=== PATIENT | male | born 1960 | race Caucasian/White ===

== ENCOUNTER 2017-11-25 08:30 | Inpatient (IN) | payer OTHER ==
[2018-02-08] MEDS ORDERED: Sodium Chloride 0.9% 100 ML ONE (06:01)
[2018-02-08] MEDS ORDERED: Tranexamic Acid 1,000 MG/10 ML VIAL ONE ×2 (06:01→09:14)
[2018-02-08] MEDS ORDERED: CEFAZOLIN 2 GM/50 ML BAG ONE (06:01)
[2018-02-08] MEDS ORDERED: Vancomycin HCl 1.5 GM in Sodium Chloride 0.9% 250 ML 300 ML IVPB SCH (06:15)
[2018-02-08] MEDS ORDERED: Midazolam HCl 2 mg/2 ml Vial ONE ×2 (06:29→06:49)
[2018-02-08] MEDS ORDERED: Fentanyl 100 MCG/2 ML VIAL ONE ×4 (06:30→09:44)
[2018-02-08] MEDS ORDERED: Fentanyl 100 MCG/2 ML VIAL SLOW IVP PRN ×2 (07:03)
[2018-02-08] MEDS ORDERED: Acetaminophen 325 MG TAB PO PRN (07:03)
[2018-02-08] MEDS ORDERED: Promethazine HCl 25 MG/ML VIAL IM PRN ×3 (07:03→09:09)
[2018-02-08] MEDS ORDERED: Zolpidem Tartrate 5 MG TAB PO PRN ×2 (07:03→07:21)
[2018-02-08] MEDS ORDERED: traMADol HCl 50 MG TAB PO PRN ×2 (07:03→07:21)
[2018-02-08] MEDS ORDERED: Ondansetron PF 4 MG/2 ML Vial IVP PRN ×2 (07:03→07:21)
[2018-02-08] MEDS ORDERED: diphenhydrAMINE 25 MG CAP PO PRN (07:03)
[2018-02-08] MEDS ORDERED: HYDROcodone/Acetaminophen 10/325 mg Tablet PO PRN ×3 (07:03→07:21)
[2018-02-08] MEDS ORDERED: CEFAZOLIN/Water 2 GM/20 ML SYRINGE SLOW IVP SCH (07:15)
[2018-02-08] MEDS ORDERED: Ropivacaine HCl/PF 250 ML in Premix Bag 1 BAG NERVE BLCK SCH (07:21)
[2018-02-08] MEDS ORDERED: Meperidine HCl/PF 25 MG/ML VIAL ONE (09:01)
[2018-02-08] MEDS ORDERED: Meperidine HCl/PF 25 MG/ML VIAL SLOW IVP PRN (09:09)
[2018-02-08] MEDS ORDERED: Ondansetron HCl/PF 4 MG/2 ML Vial IVP PRN (09:09)
[2018-02-08] MEDS ORDERED: Promethazine HCl 25 MG/ML VIAL SLOW IVP PRN (09:09)
--- NOTE | 2018-02-08 09:42 | RAD ---
2 VIEW RIGHT KNEE: Date: 02/08/18 INDICATION: Total knee postop evaluation. FINDINGS: There is a right knee prosthesis without hardware complication. Expected postprocedural findings of t he soft tissues are seen. IMPRESSION: Postoperative right knee without acute hardware complication. POS: [facility]
[2018-02-08] MEDS ORDERED: Ketorolac Tromethamine 30 MG/ML VIAL ONE (09:49)
--- NOTE | 2018-02-08 11:59 | OP ---
DATE OF PROCEDURE: 02/08/2018 PREOPERATIVE DIAGNOSIS: End-stage tricompartmental osteoarthritis of right knee. POSTOPERATIVE DIAGNOSIS: End-stage tricompartmental osteoarthritis of right knee. OPERATIVE PROCEDURE: Cemented cruciate sparing computer-assisted navigation right total knee arthroplasty. SURGEON: Henri Trotter MD. DIRECTOR OF ORTHOPEDICS: Tamir Julian PA-C. ANESTHESIA: General via endotracheal tube augmented with indwelling femoral block with a single shot of sciatic block. COMPONENTS USED: [employer] Triathlon primary size 5 cemented cruciate sparing femoral component with a Triathlon primary size 5 cemented tibial base plate, 11 mm polyethylene fixed bearing insert, and an 835 patella button. TOURNIQUET TIME: 59 minutes at 300 mmHg. FINDINGS: End-stage severe degenerative tricompartmental disease, [id number] arthrosis, periarticular osteophyte formation, large serous effusion, hypertrophic synovium, and changes consistent with degenerative genu varum. ESTIMATED BLOOD LOSS: Less than 100. DRAINS: None. SPECIMENS: None. COMPLICATIONS: None. COUNTS: Correct. INDICATIONS FOR SURGERY: Mr. Gay is a 57-year-old white male, who has had progressive right knee pain standing and walking for the last 5 to 7 years. He has failed conservative management and would like to proceed with total knee arthroplasty as a definitive treatment for his pain. PROCEDURE IN DETAIL: After informed consent was obtained in the preoperative holding area, the patient was taken to the operative suite where general anesthesia was induced. Once adequate level of general anesthesia was obtained, the patient was positioned and a well-padded tourniquet was placed around the right proximal thigh. The right lower extremity was then prepped and draped in the usual sterile fashion. Prior to exsanguination, a time-out was called and all members of the surgical team agreed upon site, surgeon, and patient. The extremity was then exsanguinated and the tourniquet was raised. A midline longitudinal incision was then made directly over the patella extending 2 fingerbreadths above the superior pole of the patella and 2 fingerbreadths inferior to the inferior patellar pole of the patella. Deeper subcutaneous layers were dissected sharply and local bleeding was controlled with Bovie electrocautery. A quad tendon longitudinal split was then made sharply and a median parapatellar arthrotomy was carried out both sharp and with Bovie electrocautery, carried down to 1 fingerbreadth medial to the tibial tubercle. The knee was then placed into flexion and the patella was everted nicely, and a copious fat pad ectomy was performed, allowing for greater exposure of the tibia. The computer-assisted distal femoral fiducial was then placed and pinned firmly, and the distal femoral cutting guide was pinned firmly into place. The oscillating saw was then used to remove the appropriate amount of bone. The 4-in-1 cutting block was then placed on the distal femur and the oscillating saw was used to remove the appropriate amount of bone off the anterior, posterior, and chamfer cuts. After completion of bone cuts, the anterior cruciate ligament was resected sharply and the posterior cruciate ligament retractor was placed and the tibia was subluxed for better exposure. Partial meniscectomies were carried out, and the tibial computer-assisted fiducial was pinned, and the cutting guide was placed. Oscillating saw was then used to remove the bone, with Hohmann retractors used to take care and protect the collateral ligaments. After the tibial resection was performed, a laminar business associate was placed in between the freshened bone cuts. The knee placed at 90 degrees and further bilateral meniscectomies were carried out, and the curved osteotome and curettage were used to remove any excess bone spurs in the posterior compartment. The trial femoral component, tibial baseplate were placed with the appropriate polyethylene trial insert with an appropriate polyethylene spacer and patellar button. The knee was taken through full range of motion with flexion and extension from 0 to 90 degrees and patellar broach squarely in the trochlea without any squinting or subluxation noted. The knee was also stable to varus and valgus stressing at 0, 15, 45, and 90 degrees of flexion. The drawer was negative. All trial components were then removed and the keel punch was used to provide the appropriate defect in the tibia with a mallet. The freshened bone cuts were copiously irrigated with pulsatile lavage of about 1.5 L to remove all excess debris. The freshened bone cuts were then dried with suction and lap sponge. The knee was placed in flexion and retractors were placed to provide access to all bone cuts. Tobramycin-impregnated methyl methacrylate cement was then placed on the freshened bone cuts and implants which were malleted firmly into place. Curettage and [place] elevators were used to remove any excess bone cement. The knee was placed into full extension and the patellar button was placed under compression, and the cement was allowed to cure. Once completed, the components were again taken through full range of motion and copious irrigation of the knee was carried out with another liter of normal saline. All components were inspected fully with full range of motion and varus and valgus stressing. There was no laxity noted and full extension was observed clinically. Primary closure was accomplished with #2 interrupted Vicryl stitch of the arthrotomy defect. This was oversewn with a #2 running Quill barbed stitch. The subcutaneous layer was then closed with a running 0 barbed Monocryl stitch and skin closure accomplished with a running subcuticular 3-0 Monocryl barbed Quill stitch and augmented with cement on the skin. Tourniquet was lowered. Good spontaneous return of distal pulses was noted clinically and a sterile dressing was applied to the incision. The procedure was terminated without any complications. The patient was awakened in the operative suite and taken to the recovery room in stable condition. Job ID: [id number]
[2018-02-08] MEDS: Fentanyl 100 MCG/2 ML VIAL SLOW IVP PRN (12:52)
[2018-02-08] MEDS: CEFAZOLIN 2 GM/50 ML-DEXTROSE 2 GM in Premix Bag 1 BAG IVPB SCH ×2 (12:53→20:46)
[2018-02-08] MEDS ORDERED: Diabetic Tussin 200 MG/10 ML UDCUP PO PRN (13:48)
[2018-02-08] MEDS ORDERED: Cepastat Lozenges 1 LOZ PO PRN (13:48)
[2018-02-08] MEDS ORDERED: Ondansetron ODT 4 MG TAB PO PRN (13:48)
[2018-02-08] MEDS ORDERED: hydrALAZINE 20 MG/ML VIAL SLOW IVP PRN (13:48)
[2018-02-08] MEDS ORDERED: Artificial Tears 18 DROP/0.9 ML EA EYE PRN (13:48)
[2018-02-08] MEDS ORDERED: Sodium Chloride 0.65% Nasal 44 ML BOT EA NARE PRN (13:48)
[2018-02-08] MEDS ORDERED: Eucerin (Mineral Oil/Petrolatum,White) 30 gm Jar TOP PRN (13:48)
--- NOTE | 2018-02-08 14:52 | PDOC.PN ---
- Subjective Encounter Start Date: 02/08/18 Encounter Start Time: 14:15 -: old records requested/rev Patient seen and examined. No new complaints. admitted for right knee replacement consulted for medical management - Objective Resuscitation Status - Order Detail: 02/08/18 13:49 Resuscitation Status Routine Resuscitation Status: FULL: Full Resuscitation MAR Reviewed: Yes Vital Signs & Weight: Weight Weight 207 lb Additional Labs: old record reviewed Radiology Reviewed by me: Yes (knee xray reviewed) Phys Exam - Physical Examination Constitutional: NAD HEENT: PERRLA, moist MMs, sclera anicteric Neck: no JVD, supple Respiratory: no wheezing, no rales, no rhonchi Cardiovascular: RRR, no significant murmur, no rub Gastrointestinal: soft, non-tender, no distention, positive bowel sounds Musculoskeletal: no edema, pulses present right knee with dressing, nerve block in place Neurological: non-focal, normal sensation, moves all 4 limbs Psychiatric: normal affect, A&O x 3 Skin: no rash, normal turgor Dx/Plan (1) Status post total right knee replacement Code(s): Z96.651 - PRESENCE OF RIGHT ARTIFICIAL KNEE JOINT Status: Acute (2) H/O gastric bypass Code(s): Z98.84 - BARIATRIC SURGERY STATUS Status: Chronic (3) H/O gastric ulcer Code(s): Z87.19 - PERSONAL HISTORY OF OTHER DISEASES OF THE DIGESTIVE SYSTEM Status: Chronic (4) Osteoarthritis Code(s): M19.90 - UNSPECIFIED OSTEOARTHRITIS, UNSPECIFIED SITE Status: Chronic - Plan cont current plan of care, plan discussed w/ family, PT/OT * continue aspirin for DVT prophylaxis * continue pepcid for GI prophylaxis * nerve block as per anesthesia * code status addressed and he is full code * medication reviewed as below * symptomatic treatment * discussed with family * PT/OT as per [facility] protocol * home medication reconciled.. Review of Systems - Review of Systems ENT: negative: Ear Pain, Ear Discharge, Nose Pain, Nose Discharge, Nose Congestion, Mouth Pain, Mouth Swelling, Throat Pain, Throat Swelling, Other Respiratory: negative: Cough, Dry, Shortness of Breath, Hemoptysis, SOB with Excertion, Pleuritic Pain, Sputum, Wheezing Cardiovascular: negative: chest pain, palpitations, orthopnea, paroxysmal nocturnal dyspnea, edema, light headedness, other Gastrointestinal: negative: Nausea, Vomiting, Abdominal Pain, Diarrhea, Constipation, Melena, Hematochezia, Other Genitourinary: negative: Dysuria, Frequency, Incontinence, Hematuria, Retention , Other Musculoskeletal: negative: Neck Pain, Shoulder Pain, Arm Pain, Back Pain, Hand Pain, Leg Pain, Foot Pain, Other Skin: negative: Rash, Lesions, Fabián, Bruising, Other Neurological: negative: Weakness, Numbness, Incoordination, Change in Speech, Confusion, Seizures, Other - Medications/Allergies Allergies/Adverse Reactions: Allergies Allergy/AdvReac Type Severity Reaction Status Date / Time codeine Allergy stomach Verified 12/30/17 09:12 upset Medications: Current Medications Acetaminophen (Tylenol) 650 mg PO Q4H PRN PRN Reason: VALDEZ/ T > 101F; Mild Pain (1-3) Hydrocodone Bitart/Acetaminophen ([place]kins 10/325) 1 tab PO Q4H PRN PRN Reason: Pain (1-3) Hydrocodone Bitart/Acetaminophen ([place] 10/325) 2 tab PO Q4H PRN PRN Reason: PAIN (4-6) Artificial Tears (Tears Naturale) 2 drop EA EYE PRN PRN PRN Reason: Dry Eyes Aspirin (Ecotrin) 81 mg PO BID [facility] Diphenhydramine HCl (Benadryl) 25 mg PO Q6H PRN PRN Reason: Itching Fentanyl (Sublimaze) 50 mcg SLOW IVP Q1H PRN PRN Reason: breakthrough pain Last Admin: 02/08/18 12:52 Dose: 50 mcg Ferrous Gluconate (Fergon) 324 mg PO BID-WM [facility] Guaifenesin (Robitussin Sf) 200 mg PO Q4H PRN PRN Reason: Cough Hydralazine HCl (Apresoline) 10 mg SLOW IVP Q4H PRN PRN Reason: SBP > 180 and HR < 70 Sodium Chloride (Normal Saline 0.9%) 1,000 mls @ 100 mls/hr IV .Q10H [facility] Cefazolin Sodium/Dextrose 2 gm (/ Device) 50 mls @ 100 mls/hr IVPB Q8HR [facility] Stop: 02/08/18 22:29 Last Admin: 02/08/18 12:53 Dose: 50 mls Ropivacaine 250 ml/ Device 250 mls @ 10 mls/hr NERVE BLCK INF [facility] Iron/Minerals/Multivitamins (Theragran M) 1 tab PO DAILY [facility] Ketorolac Tromethamine (Toradol) 30 mg IVP Q6H PRN PRN Reason: Moderate Pain (4-6) Stop: 02/11/18 07:22 Mineral Oil/White Petrolatum (Eucerin Cream) 0 gm TOP BIDPRN PRN PRN Reason: Dry Skin Ondansetron HCl (Zofran) 4 mg IVP Q6H PRN PRN Reason: Nausea/Vomiting Ondansetron HCl (Zofran Odt) 4 mg PO Q6H PRN PRN Reason: Nausea/Vomiting Promethazine HCl (Phenergan) 12.5 mg IM Q4H PRN PRN Reason: Nausea Senna/Docusate Sodium (Senokot S) 2 tab PO BID [facility] Sodium Chloride (Flush - Normal Saline) 10 ml IVF PRN PRN PRN Reason: Saline Flush Sodium Chloride ([place] Nasal [place] 0.65%) 0 ml EA NARE QIDPRN PRN PRN Reason: Nasal Congestion Throat Lozenges (Cepastat Lozenges) 1 rhona PO Q2H PRN PRN Reason: Sore Throat Tramadol HCl (Ultram) 50 mg PO Q6H PRN PRN Reason: Mild Pain (1-3) Tramadol HCl (Ultram) 100 mg PO Q6H PRN PRN Reason: Moderate Pain 4-6 Zolpidem Tartrate (Ambien) 5 mg PO HSPRN PRN PRN Reason: Insomnia
[2018-02-08] MEDS ORDERED: Ropivacaine 0.5% HCl/PF (150 MG/30 ML VIAL) ONE (15:39)
[2018-02-08] MEDS ORDERED: Bupivacaine 0.25% HCL 30 ML VIAL ONE (15:39)
[2018-02-08] MEDS: Sodium Chloride 0.9% 1,000 ML IV SCH ×2 (15:41→18:36)
[2018-02-08] MEDS: Aspirin 81 mg Enteric Coated Tablet PO SCH ×2 (15:42→20:47)
[2018-02-08] MEDS ORDERED: Dexamethasone 20 MG/5 ML VIAL ONE (15:57)
[2018-02-08] MEDS ORDERED: Glycopyrrolate 0.2 MG/ML 5 ML SYRINGE ONE (15:57)
[2018-02-08] MEDS ORDERED: PHENYLEPHRINE-NS 100 MCG/ML 10 ML SYRINGE ONE (15:57)
[2018-02-08] MEDS ORDERED: Lidocaine 1% PF 5 ML VIAL ONE (15:57)
[2018-02-08] MEDS ORDERED: Ondansetron PF 4 MG/2 ML Vial ONE (15:57)
[2018-02-08] MEDS ORDERED: PROPOFOL 200 MG/20 ML VIAL ONE (15:57)
[2018-02-08 16:49] VITALS: BMI 28.0
[2018-02-08] MEDS: HYDROcodone/Acetaminophen 10/325 mg Tablet PO PRN (18:52)
[2018-02-08] MEDS: Famotidine 20 MG TAB PO SCH (20:47)
[2018-02-09] MEDS: Sodium Chloride 0.9% 1,000 ML IV SCH ×3 (03:08→19:38)
[2018-02-09] MEDS: HYDROcodone/Acetaminophen 10/325 mg Tablet PO PRN ×4 (04:04→18:13)
[2018-02-09] MEDS: traMADol HCl 50 MG TAB PO PRN ×2 (06:43→13:06)
[2018-02-09] MEDS: Ketorolac Tromethamine 30 MG/ML VIAL IVP PRN ×2 (06:44→17:25)
[2018-02-09 06:58] LABS: Hemoglobin 11.3 g/dL (14.0-18.0); Mean Corpuscular HGB CONC 33.8 g/dL (32.0-36.0); Mean Corpuscular Hemoglobin 30.9 pg (27.0-31.0); Mean Corpuscular Volume 91.3 fL (78.0-98.0); Mean Platelet Volume 8.8 fL (7.4-10.4); Platelet Count 170 thou/uL (130-400); RBC Distribution Width 12.1 % (11.5-14.5); Red Blood Cell (RBC) Count 3.65 mill/uL (4.70-6.10); White Blood Cell (WBC) Count 7.4 thou/uL (4.8-10.8)
[2018-02-09] MEDS: Senokot S 8.6-50 MG TAB PO SCH ×2 (07:39→19:40)
[2018-02-09] MEDS: Famotidine 20 MG TAB PO SCH ×2 (07:39→19:41)
[2018-02-09] MEDS: Multivitamin W/ Minerals 1 TAB PO SCH (07:39)
[2018-02-09] MEDS: Ferrous Gluconate 324 MG TAB PO SCH ×2 (07:39→18:41)
[2018-02-09] MEDS: Aspirin 81 mg Enteric Coated Tablet PO SCH ×2 (07:40→19:40)
--- NOTE | 2018-02-09 10:08 | PDOC.PN ---
- Subjective Encounter Start Date: 02/09/18 Encounter Start Time: 09:45 Patient seen and examined. No new complaints. No overnight events - Objective Resuscitation Status - Order Detail: 02/08/18 13:49 Resuscitation Status Routine Resuscitation Status: FULL: Full Resuscitation MAR Reviewed: Yes Vital Signs & Weight: Vital Signs (12 hours) Temp Pulse Resp BP Pulse Ox 02/09/18 07:43 98 F 60 20 143/84 H 95 02/09/18 04:07 98.3 F 69 18 140/81 99 02/08/18 23:40 98.3 F 63 18 132/79 96 Weight Weight 207 lb I&O: 02/08/18 02/09/18 02/10/18 06:59 06:59 06:59 Intake Total 980 Output Total 350 Balance 630 Result Diagrams: 02/09/18 05:55 Phys Exam - Physical Examination Constitutional: NAD HEENT: PERRLA, moist MMs, sclera anicteric Neck: no JVD, supple Respiratory: no wheezing, no rales, no rhonchi Cardiovascular: RRR, no significant murmur, no rub Gastrointestinal: soft, non-tender, no distention, positive bowel sounds Musculoskeletal: no edema, pulses present right knee with dressing Neurological: non-focal, normal sensation Lymphatic: no nodes Psychiatric: normal affect, A&O x 3 Skin: no rash, normal turgor Dx/Plan (1) Status post total right knee replacement Code(s): Z96.651 - PRESENCE OF RIGHT ARTIFICIAL KNEE JOINT Status: Acute (2) H/O gastric bypass Code(s): Z98.84 - BARIATRIC SURGERY STATUS Status: Chronic (3) H/O gastric ulcer Code(s): Z87.19 - PERSONAL HISTORY OF OTHER DISEASES OF THE DIGESTIVE SYSTEM Status: Chronic (4) Osteoarthritis Code(s): M19.90 - UNSPECIFIED OSTEOARTHRITIS, UNSPECIFIED SITE Status: Chronic (5) Anemia, normocytic normochromic Code(s): D64.9 - ANEMIA, UNSPECIFIED Status: Chronic - Plan cont current plan of care, plan discussed w/ family, PT/OT * medically stable * pain controlled * continue aspirin for DVT prophylaxis * continue pepcid for GI prophylaxis * nerve block as per anesthesia * medication reviewed as below * symptomatic treatment * discussed with family * PT/OT as per [facility] protocol Review of Systems - Review of Systems ENT: negative: Ear Pain, Ear Discharge, Nose Pain, Nose Discharge, Nose Congestion, Mouth Pain, Mouth Swelling, Throat Pain, Throat Swelling, Other Respiratory: negative: Cough, Dry, Shortness of Breath, Hemoptysis, SOB with Excertion, Pleuritic Pain, Sputum, Wheezing Cardiovascular: negative: chest pain, palpitations, orthopnea, paroxysmal nocturnal dyspnea, edema, light headedness, other Gastrointestinal: negative: Nausea, Vomiting, Abdominal Pain, Diarrhea, Constipation, Melena, Hematochezia, Other Genitourinary: negative: Dysuria, Frequency, Incontinence, Hematuria, Retention , Other Musculoskeletal: negative: Neck Pain, Shoulder Pain, Arm Pain, Back Pain, Hand Pain, Leg Pain, Foot Pain, Other Skin: negative: Rash, Lesions, Fabián, Bruising, Other - Medications/Allergies Allergies/Adverse Reactions: Allergies Allergy/AdvReac Type Severity Reaction Status Date / Time codeine Allergy stomach Verified 12/30/17 09:12 upset Medications: Current Medications Acetaminophen (Tylenol) 650 mg PO Q4H PRN PRN Reason: VALDEZ/ T > 101F; Mild Pain (1-3) Hydrocodone Bitart/Acetaminophen ([place] 10/325) 1 tab PO Q4H PRN PRN Reason: Pain (1-3) Last Admin: 02/08/18 15:34 Dose: 1 tab Hydrocodone Bitart/Acetaminophen ([place] 10/325) 2 tab PO Q4H PRN PRN Reason: PAIN (4-6) Last Admin: 02/09/18 09:18 Dose: 2 tab Artificial Tears (Tears Naturale) 2 drop EA EYE PRN PRN PRN Reason: Dry Eyes Aspirin (Ecotrin) 81 mg PO BID [facility] Last Admin: 02/09/18 07:40 Dose: 81 mg Diphenhydramine HCl (Benadryl) 25 mg PO Q6H PRN PRN Reason: Itching Famotidine (Pepcid) 20 mg PO BID [facility] Last Admin: 02/09/18 07:39 Dose: 20 mg Fentanyl (Sublimaze) 50 mcg SLOW IVP Q1H PRN PRN Reason: breakthrough pain Last Admin: 02/08/18 12:52 Dose: 50 mcg Ferrous Gluconate (Fergon) 324 mg PO BID-[facility] Last Admin: 02/09/18 07:39 Dose: 324 mg Guaifenesin (Robitussin Sf) 200 mg PO Q4H PRN PRN Reason: Cough Hydralazine HCl (Apresoline) 10 mg SLOW IVP Q4H PRN PRN Reason: SBP > 180 and HR < 70 Sodium Chloride (Normal Saline 0.9%) 1,000 mls @ 100 mls/hr IV .Q10H [facility] Last Admin: 02/09/18 03:08 Dose: Not Given Ropivacaine 250 ml/ Device 250 mls @ 10 mls/hr NERVE BLCK INF [facility] Last Admin: 02/09/18 09:55 Dose: 250 mls Iron/Minerals/Multivitamins (Theragran M) 1 tab PO DAILY [facility] Last Admin: 02/09/18 07:39 Dose: 1 tab Ketorolac Tromethamine (Toradol) 30 mg IVP Q6H PRN PRN Reason: Moderate Pain (4-6) Stop: 02/11/18 07:22 Last Admin: 02/09/18 06:44 Dose: 30 mg Mineral Oil/White Petrolatum (Eucerin Cream) 0 gm TOP BIDPRN PRN PRN Reason: Dry Skin Ondansetron HCl (Zofran) 4 mg IVP Q6H PRN PRN Reason: Nausea/Vomiting Ondansetron HCl (Zofran Odt) 4 mg PO Q6H PRN PRN Reason: Nausea/Vomiting Promethazine HCl (Phenergan) 12.5 mg IM Q4H PRN PRN Reason: Nausea Senna/Docusate Sodium (Senokot S) 2 tab PO BID [facility] Last Admin: 02/09/18 07:39 Dose: 2 tab Sodium Chloride (Flush - Normal Saline) 10 ml IVF PRN PRN PRN Reason: Saline Flush Sodium Chloride ([place] Nasal [place] 0.65%) 0 ml EA NARE QIDPRN PRN PRN Reason: Nasal Congestion Throat Lozenges (Cepastat Lozenges) 1 rhona PO Q2H PRN PRN Reason: Sore Throat Tramadol HCl (Ultram) 50 mg PO Q6H PRN PRN Reason: Mild Pain (1-3) Tramadol HCl (Ultram) 100 mg PO Q6H PRN PRN Reason: Moderate Pain 4-6 Last Admin: 02/09/18 06:43 Dose: 100 mg Zolpidem Tartrate (Ambien) 5 mg PO HSPRN PRN PRN Reason: Insomnia
[2018-02-09] MEDS: Fentanyl 100 MCG/2 ML VIAL SLOW IVP PRN ×2 (16:50→17:50)
[2018-02-10] MEDS: HYDROcodone/Acetaminophen 10/325 mg Tablet PO PRN ×3 (00:19→08:32)
[2018-02-10] MEDS: Ketorolac Tromethamine 30 MG/ML VIAL IVP PRN (00:21)
[2018-02-10 06:16] LABS: Hemoglobin 11.4 g/dL (14.0-18.0); Mean Corpuscular HGB CONC 34.1 g/dL (32.0-36.0); Mean Corpuscular Hemoglobin 31.8 pg (27.0-31.0); Mean Corpuscular Volume 93.3 fL (78.0-98.0); Mean Platelet Volume 8.7 fL (7.4-10.4); Platelet Count 149 thou/uL (130-400); RBC Distribution Width 12.3 % (11.5-14.5); White Blood Cell (WBC) Count 6.9 thou/uL (4.8-10.8)
[2018-02-10] MEDS: Ferrous Gluconate 324 MG TAB PO SCH (07:30)
[2018-02-10] MEDS: Senokot S 8.6-50 MG TAB PO SCH (07:30)
[2018-02-10] MEDS: Famotidine 20 MG TAB PO SCH (07:30)
[2018-02-10] MEDS: Aspirin 81 mg Enteric Coated Tablet PO SCH (07:30)
[2018-02-10] MEDS: Multivitamin W/ Minerals 1 TAB PO SCH (07:30)
[2018-02-10 08:21] VITALS: BP 145/89; TEMP 98.1
--- NOTE | 2018-02-10 09:15 | PDOC.PN ---
- Subjective Encounter Start Date: 02/10/18 Encounter Start Time: 07:30 Patient seen and examined. No new complaints. No overnight events - Objective Resuscitation Status - Order Detail: 02/08/18 13:49 Resuscitation Status Routine Resuscitation Status: FULL: Full Resuscitation MAR Reviewed: Yes Vital Signs & Weight: Vital Signs (12 hours) Temp Pulse Resp BP Pulse Ox 02/10/18 07:30 98.1 F 72 20 145/89 H 99 02/10/18 04:50 56 L 142/88 H 02/10/18 04:00 98.6 F 54 L 18 168/102 H 100 02/10/18 00:00 98 F 16 140/72 98 Weight Admit Weight 207 lb Weight 207 lb I&O: 02/09/18 02/10/18 02/11/18 06:59 06:59 06:59 Intake Total 980 830 Output Total 350 Balance 630 830 Result Diagrams: 02/10/18 05:37 Phys Exam - Physical Examination Constitutional: NAD HEENT: PERRLA, moist MMs, sclera anicteric Neck: no JVD, supple Respiratory: no wheezing, no rales, no rhonchi Cardiovascular: RRR, no significant murmur, no rub Gastrointestinal: soft, non-tender, no distention, positive bowel sounds Musculoskeletal: no edema, pulses present Neurological: non-focal, normal sensation, moves all 4 limbs Lymphatic: no nodes Psychiatric: normal affect, A&O x 3 Skin: no rash, normal turgor Dx/Plan (1) Status post total right knee replacement Code(s): Z96.651 - PRESENCE OF RIGHT ARTIFICIAL KNEE JOINT Status: Acute (2) H/O gastric bypass Code(s): Z98.84 - BARIATRIC SURGERY STATUS Status: Chronic (3) H/O gastric ulcer Code(s): Z87.19 - PERSONAL HISTORY OF OTHER DISEASES OF THE DIGESTIVE SYSTEM Status: Chronic (4) Osteoarthritis Code(s): M19.90 - UNSPECIFIED OSTEOARTHRITIS, UNSPECIFIED SITE Status: Chronic (5) Anemia, normocytic normochromic Code(s): D64.9 - ANEMIA, UNSPECIFIED Status: Chronic - Plan cont current plan of care * medication reviewed as below * symptomatic treatment * stable for discharge * see discharge summery. Review of Systems - Review of Systems ENT: negative: Ear Pain, Ear Discharge, Nose Pain, Nose Discharge, Nose Congestion, Mouth Pain, Mouth Swelling, Throat Pain, Throat Swelling, Other Respiratory: negative: Cough, Dry, Shortness of Breath, Hemoptysis, SOB with Excertion, Pleuritic Pain, Sputum, Wheezing Cardiovascular: negative: chest pain, palpitations, orthopnea, paroxysmal nocturnal dyspnea, edema, light headedness, other Gastrointestinal: negative: Nausea, Vomiting, Abdominal Pain, Diarrhea, Constipation, Melena, Hematochezia, Other Genitourinary: negative: Dysuria, Frequency, Incontinence, Hematuria, Retention , Other Musculoskeletal: negative: Neck Pain, Shoulder Pain, Arm Pain, Back Pain, Hand Pain, Leg Pain, Foot Pain, Other Skin: negative: Rash, Lesions, Fabián, Bruising, Other - Medications/Allergies Allergies/Adverse Reactions: Allergies Allergy/AdvReac Type Severity Reaction Status Date / Time codeine Allergy stomach Verified 12/30/17 09:12 upset Medications: Current Medications Acetaminophen (Tylenol) 650 mg PO Q4H PRN PRN Reason: VALDEZ/ T > 101F; Mild Pain (1-3) Hydrocodone Bitart/Acetaminophen ([place] 10/325) 1 tab PO Q4H PRN PRN Reason: Pain (1-3) Last Admin: 02/08/18 15:34 Dose: 1 tab Hydrocodone Bitart/Acetaminophen ([place] 10/325) 2 tab PO Q4H PRN PRN Reason: PAIN (4-6) Last Admin: 02/10/18 08:32 Dose: 2 tab Artificial Tears (Tears Naturale) 2 drop EA EYE PRN PRN PRN Reason: Dry Eyes Aspirin (Ecotrin) 81 mg PO BID [facility] Last Admin: 02/10/18 07:30 Dose: 81 mg Diphenhydramine HCl (Benadryl) 25 mg PO Q6H PRN PRN Reason: Itching Famotidine (Pepcid) 20 mg PO BID [facility] Last Admin: 02/10/18 07:30 Dose: 20 mg Fentanyl (Sublimaze) 50 mcg SLOW IVP Q1H PRN PRN Reason: breakthrough pain Last Admin: 02/09/18 17:50 Dose: 50 mcg [facility] Last Admin: 02/10/18 07:30 Dose: 324 mg Guaifenesin (Robitussin Sf) 200 mg PO Q4H PRN PRN Reason: Cough Hydralazine HCl (Apresoline) 10 mg SLOW IVP Q4H PRN PRN Reason: SBP > 180 and HR < 70 Sodium Chloride (Normal Saline 0.9%) 1,000 mls @ 100 mls/hr IV .Q10H [facility] Last Admin: 02/09/18 19:38 Dose: Not Given Ropivacaine 250 ml/ Device 250 mls @ 10 mls/hr NERVE BLCK INF [facility] Last Admin: 02/09/18 09:55 Dose: 250 mls Iron/Minerals/Multivitamins (Theragran M) 1 tab PO DAILY [facility] Last Admin: 02/10/18 07:30 Dose: 1 tab Ketorolac Tromethamine (Toradol) 30 mg IVP Q6H PRN PRN Reason: Moderate Pain (4-6) Stop: 02/11/18 07:22 Last Admin: 02/10/18 00:21 Dose: 30 mg Mineral Oil/White Petrolatum (Eucerin Cream) 0 gm TOP BIDPRN PRN PRN Reason: Dry Skin Ondansetron HCl (Zofran) 4 mg IVP Q6H PRN PRN Reason: Nausea/Vomiting Ondansetron HCl (Zofran Odt) 4 mg PO Q6H PRN PRN Reason: Nausea/Vomiting Last Admin: 02/09/18 13:04 Dose: 4 mg Promethazine HCl (Phenergan) 12.5 mg IM Q4H PRN PRN Reason: Nausea Senna/Docusate Sodium (Senokot S) 2 tab PO BID [facility] Last Admin: 02/10/18 07:30 Dose: 2 tab Sodium Chloride (Flush - Normal Saline) 10 ml IVF PRN PRN PRN Reason: Saline Flush Sodium Chloride ([place] Nasal [employer] 0.65%) 0 ml EA NARE QIDPRN PRN PRN Reason: Nasal Congestion Throat Lozenges (Cepastat Lozenges) 1 rhona PO Q2H PRN PRN Reason: Sore Throat Tramadol HCl (Ultram) 50 mg PO Q6H PRN PRN Reason: Mild Pain (1-3) Tramadol HCl (Ultram) 100 mg PO Q6H PRN PRN Reason: Moderate Pain 4-6 Last Admin: 02/09/18 13:06 Dose: 100 mg Zolpidem Tartrate (Ambien) 5 mg PO HSPRN PRN PRN Reason: Insomnia
--- NOTE | 2018-02-10 10:26 | DIS ---
DATE OF ADMISSION: 02/08/2018 DATE OF DISCHARGE: 02/10/2018 DISCHARGE DISPOSITION: Home. DISCHARGE PRIMARY DIAGNOSIS: Right total knee replacement status. SECONDARY DISCHARGE DIAGNOSES: 1. Osteoarthritis. 2. History of gastric bypass. 3. History of gastric ulcer. PRIMARY PROCEDURE/OPERATION: Right total knee replacement by Dr. Trotter. RADIOLOGICAL INVESTIGATION: Knee x-ray. SIGNIFICANT LABS: Hemoglobin 11.4. DISCHARGE MEDICATIONS: 1. Zofran 4 mg p.o. as directed p.r.n. 2. Protonix 40 mg p.o. daily. 3. Aspirin 81 mg p.o. b.i.d. CONTRAINDICATION: None. CODE STATUS: Full code. INPATIENT DIETITIAN RESEARCH: Dr. Trotter was primary, Brittny Team was consulted for medical co-management. TEST RESULTS PENDING ON DISCHARGE: None. ALLERGIES: CODEINE. DISCHARGE PLAN: Posthospital, the patient will follow up with Dr. Trotter on February 23, 2018, at 9:15 a.m. HOSPITAL COURSE: A 57-year-old male who was electively admitted by Dr. Trotter, for right total knee replacement. The patient was subsequently admitted to [facility]. At that point, Brittny Team was consulted for medical comanagement. The patient's medical problems remained stable. He did very well with [facility] protocol treatment. The patient's pain is well controlled. The patient is planned for discharge today. The patient is seen and examined at bedside today. Please see my progress note from today for further details. Job ID: [id number]
== END 2018-02-10 11:40 | disposition home or self-care (01) | DRG 470 ==
LOC: CANPREIN → SURG A 02-08 05:44 → SJJU 02-08 12:25
PROVIDERS: ADMIT Orthopaedic Surgery; ATTEND Orthopaedic Surgery
PROC: 0SRC0J9 Replacement of Right Knee Joint with Synthetic Substitute, Cemented, Open Approach (ICD-10-PCS; principal; 2018-02-08)
DX: M17.11 Unilateral primary osteoarthritis, right knee (principal); D64.9 Anemia, unspecified; Z98.84 Bariatric surgery status; Z87.11 Personal history of peptic ulcer disease; Z88.5 Allergy status to narcotic agent
CPT/HCPCS: 36415; 85027; C1713; C1776; G8978-GP-CK; G8979-GP-CI; J1100; J1885; J2001; J2175; J2250; J2405; J2704; J2795; J3010; J3370; J7050; Q0162; S0020

== ENCOUNTER 2017-12-21 22:37 | Emergency (ER) | payer OTHER ==
--- NOTE | 2017-12-21 23:10 | RAD ---
CHEST ONE VIEW: 12/21/17 HISTORY: Chest pain. FINDINGS: The cardiac silhouette is magnified by projection. Pulmonary vasculature unremarkable. Mediastinum i s midline. No lobar consolidation or evidence of pneumothorax. bus monitor leads overlie the ches t. IMPRESSION: No active cardiopulmonary abnormalities are demonstrated. POS: [facility]
[2017-12-21 23:11] LABS: #Eosinphils 0.1 thou/uL (0.0-0.7); #Lymphocytes 0.9 thou/uL (1.20-3.40); #Monocytes 0.6 thou/uL (0.11-0.59); #Neutrophils 4.5 thou/uL (1.40-6.50); %Basophils 0.6 % (0.0-1.0); %Lymphocytes 14.3 % (21.0-51.0); %Monocytes 9.7 % (0.0-10.0); %Neutrophils 74.4 % (42.0-75.0); Hemoglobin 13.2 g/dL (14.0-18.0); Mean Corpuscular HGB CONC 33.5 g/dL (32.0-36.0); Mean Corpuscular Volume 92.6 fL (78.0-98.0); Mean Platelet Volume 8.2 fL (7.4-10.4); Platelet Count 183 thou/uL (130-400); RBC Distribution Width 12.6 % (11.5-14.5); Red Blood Cell (RBC) Count 4.26 mill/uL (4.70-6.10); White Blood Cell (WBC) Count 6.1 thou/uL (4.8-10.8)
[2017-12-21] MEDS ORDERED: Ondansetron HCl/PF 4 MG/2 ML Vial ONE (23:25)
[2017-12-21 23:30] LABS: ALT (SGPT) 102 U/L (8-55); AST (SGOT) 134 U/L (5-34); Albumin 3.8 g/dL (3.5-5.0); Alkaline Phosphatase 151 U/L (40-150); Anion Gap 10 mmol/L (10-20); BUN (Urea Nitrogen) 17 mg/dL (8.4-25.7); Bilirubin, Total 1.9 mg/dL (0.2-1.2); Calc. Creatinine Clearance 0 mL/min (70-130); Calcium 8.9 mg/dL (7.8-10.44); Carbon Dioxide 23 mmol/L (22-29); Chloride 109 mmol/L (98-107); Estimated GFR-MDRD Greater than 90; Globulin 2.3 g/dL (2.4-3.5); Glucose 96 mg/dL (70-105); Lipase 492 U/L (8-78); Potassium 3.8 mmol/L (3.5-5.1); Protein, Total 6.1 g/dL (6.0-8.3); Sodium 138 mmol/L (136-145)
[2017-12-21 23:34] LABS: CKMB 2.7 ng/mL (0-6.6); Troponin I Less than 0.010 ng/mL (< 0.028)
[2017-12-21] MEDS ORDERED: Ondansetron ODT 4 MG TAB ONE (23:42)
[2017-12-21] MEDS ORDERED: Lidocaine Viscous Sol 2% 15 ml UD Cup ONE (23:42)
[2017-12-21] MEDS ORDERED: Milk Of Magnesia 30 ML UDCUP ONE (23:42)
[2017-12-22] MEDS ORDERED: Ondansetron HCl/PF 4 MG/2 ML Vial ONE (00:34)
[2017-12-22 01:55] LABS: Bilirubin Small (Negative); Blood, Urine Negative (Negative); Clarity CLEAR (Clear); Glucose, Urine (Dipstick) Negative (Negative); Leukocyte Negative (Negative); Nitrite Negative (Negative); Protein, Urine (Dipstick) Negative (Neg-Trace); Specific Gravity, Urine 1.024 (1.002-1.036)
--- NOTE | 2017-12-22 08:35 | CT ---
PRELIMINARY REPORT/[facility]/EMERGENTY AFTER-HOURS PROCEDURE CT Abdomen and Pelvis With Intravenous Contrast EXAM DATE/TIME: 12/22/2017 1:47 AM CLINICAL HISTORY: 57 years old, male; Pain; Abdominal pain; Epigastric; Patient HX: M57 presents to ed with C/O epigast josie pain. Reports that the pain begins in his mid-stomach and radiates upwards towards throat. Patien t reports that pain has persisted for about 2 years but has worsened tonight. TECHNIQUE: Axial computed tomography images of the abdomen and pelvis with intravenous contrast. Coronal reformatted images were created and reviewed. COMPARISON: No relevant prior studies available. FINDINGS: Lower thorax: No acute findings. ABDOMEN: Liver: Unremarkable. Gallbladder and bile ducts: Gallbladder not visualized. Pancreas: Unremarkable. Spleen: Unremarkable. Adrenals: Unremarkable. Kidneys and ureters: Small right renal cyst and subcentimeter low-attenuation left renal lesion. Symmetric nephrograms. No hydronephrosis. Stomach and bowel: Gastric bypass. Otherwise unremarkable. No evidence of obstruction. Appendix: No evidence of appendicitis. PELVIS: Bladder: Underdistended. Reproductive: Unremarkable as visualized. ABDOMEN and PELVIS: Intraperitoneal space: No free air. No significant fluid collection. Bones/joints: No acute fracture. No dislocation. Soft tissues: Unremarkable. Vasculature: Unremarkable. Lymph nodes: Multiple subcentimeter mesenteric lymph nodes. IMPRESSION: No acute findings. Thank you for allowing us to participate in the care of your patient. Dictated and Authenticated by: Nickolas Cabrera MD 12/22/2017 2:29 AM Central Time ([place] & [place]) CT ABDOMEN WITH CONTRAST CT PELVIS WITH CONTRAST: Date: 12/21/17 HISTORY: Peptic ulcer disease. Small bowel obstruction. Pancreatitis. FINDINGS/IMPRESSION: This report is in agreement with the preliminary report by Julieth. No acute abnormality with regard to the solid organs. There is no CT evidence of pancreatitis. There is evidence of bariatric surgery. No evidence of bowel obstruction. Normal caliber appendix. Incomplete distention of the urinary bladder limits evaluation of the urinary bladder mucosa. POS: [facility]
== END 2017-12-22 03:20 | disposition home or self-care (01) ==
LOC: ERS 22:37
DX: K85.90 Acute pancreatitis without necrosis or infection, unspecified (principal)
CPT/HCPCS: 36415; 71045; 74177; 80053; 81003; 82553; 83690; 84484; 85025; 93005; 96361; 96374; 96376; J2405; Q0162

== ENCOUNTER 2017-12-30 08:33 | Outpatient (CLI) | payer OTHER ==
[2017-12-30 10:30] LABS: #Eosinphils 0.1 thou/uL (0.0-0.7); #Lymphocytes 1.6 thou/uL (1.20-3.40); #Monocytes 0.5 thou/uL (0.11-0.59); #Neutrophils 2.3 thou/uL (1.40-6.50); %Basophils 0.7 % (0.0-1.0); %Monocytes 10.8 % (0.0-10.0); %Neutrophils 50.5 % (42.0-75.0); Hemoglobin 13.3 g/dL (14.0-18.0); Mean Corpuscular HGB CONC 32.3 g/dL (32.0-36.0); Mean Corpuscular Hemoglobin 30.4 pg (27.0-31.0); Mean Corpuscular Volume 94.3 fL (78.0-98.0); Mean Platelet Volume 7.6 fL (7.4-10.4); Platelet Count 282 thou/uL (130-400); RBC Distribution Width 12.6 % (11.5-14.5); Red Blood Cell (RBC) Count 4.39 mill/uL (4.70-6.10); White Blood Cell (WBC) Count 4.5 thou/uL (4.8-10.8)
[2017-12-30 10:31] LABS: Bilirubin Negative (Negative); Blood, Urine Negative (Negative); Clarity CLEAR (Clear); Glucose, Urine (Dipstick) Negative (Negative); Leukocyte Negative (Negative); Nitrite Negative (Negative); Protein, Urine (Dipstick) Negative (Neg-Trace); Specific Gravity, Urine 1.022 (1.002-1.036)
[2017-12-30 10:34] LABS: INR-International Normal Ratio 1.1; Prothrombin Time 14.3 SEC (12.0-14.7)
[2017-12-30 10:42] LABS: Bacteria/HPF None Seen HPF (None Seen); Hyaline Casts/LPF 0-3 HYALINE CAST LPF (0-3 Hyaline); Pathc Cast-AUWi Flag 0.43 (0-2.49); RBC/HPF 0-3 HPF (0-3); Squamous Epithelial None Seen HPF (0-3); WBC/HPF 0-3 HPF (0-3)
[2017-12-30 10:59] LABS: Anion Gap 9 mmol/L (10-20); BUN (Urea Nitrogen) 13 mg/dL (8.4-25.7); Calc. Creatinine Clearance 0 mL/min (70-130); Calcium 8.8 mg/dL (7.8-10.44); Carbon Dioxide 27 mmol/L (22-29); Chloride 107 mmol/L (98-107); Estimated GFR-MDRD 78; Glucose 63 mg/dL (70-105); Potassium 4.4 mmol/L (3.5-5.1); Sodium 139 mmol/L (136-145)
== END 2017-12-30 08:34 | disposition home or self-care (01) ==
LOC: LABBT 08:33
PROVIDERS: ATTEND Orthopaedic Surgery
DX: Z01.818 Encounter for other preprocedural examination (principal); M17.11 Unilateral primary osteoarthritis, right knee
CPT/HCPCS: 80048; 81001; 82947; 85025; 85610; 87081

== ENCOUNTER 2018-02-02 10:27 | Outpatient (CLI) | payer OTHER | END 2018-02-02 10:28 | disposition home or self-care (01) | LOC: LABBT 10:27 | PROVIDERS: ATTEND Orthopaedic Surgery | DX: Z01.812 Encounter for preprocedural laboratory examination (principal); M17.11 Unilateral primary osteoarthritis, right knee | CPT/HCPCS: 86850; 86900; 86901 ==

== ENCOUNTER 2020-04-25 09:05 | Inpatient (IN) | payer OTHER ==
--- NOTE | 2020-04-25 10:54 | RAD ---
PORTABLE CHEST: Date: 04/25/2020 HISTORY: Patient diagnosed with COVID last Wednesday. Reports shortness of breath with exertion. COMPARISON: Most recent study available which is a 12/21/2017 study. FINDINGS: Heart size within normal limits. There are predominantly bibasilar lung changes which suggest some in filtrative change, also more subtle peripheral lung changes in the mid lung [place]. IMPRESSION: Bibasilar infiltrates and suggestion of perhaps some subtle ground-glass opacity in both mid lung fie lds. POS: JUVENCIO
[2020-04-25] MEDS ORDERED: Dexamethasone 10 MG/ML VIAL ONE (11:16)
[2020-04-25 11:46] LABS: #Eosinphils 0.1 thou/uL (0.0-0.7); #Monocytes 0.8 thou/uL (0.11-0.59); #Neutrophils 7.2 thou/uL (1.40-6.50); %Basophils 0.1 % (0.0-1.0); %Eosinophils 0.7 % (0.0-10.0); %Lymphocytes 11.1 % (21.0-51.0); %Monocytes 8.7 % (0.0-10.0); %Neutrophils 79.4 % (42.0-75.0); Hemoglobin 14.7 g/dL (14.0-18.0); Mean Corpuscular HGB CONC 33.7 g/dL (32.0-36.0); Mean Corpuscular Hemoglobin 31.4 pg (27.0-31.0); Mean Corpuscular Volume 93.2 fL (78.0-98.0); Mean Platelet Volume 7.5 fL (7.4-10.4); Platelet Count 320 thou/uL (130-400); RBC Distribution Width 12.2 % (11.5-14.5); Red Blood Cell (RBC) Count 4.69 mill/uL (4.70-6.10)
[2020-04-25 12:09] LABS: ALT (SGPT) 23 U/L (8-55); AST (SGOT) 30 U/L (5-34); Albumin 3.7 g/dL (3.5-5.0); Alkaline Phosphatase 90 U/L (40-110); Anion Gap 13 mmol/L (10-20); BUN (Urea Nitrogen) 18 mg/dL (8.4-25.7); Bilirubin, Total 1.4 mg/dL (0.2-1.2); Calc. Creatinine Clearance 0 mL/min (70-130); Calcium 8.8 mg/dL (7.8-10.44); Carbon Dioxide 27 mmol/L (22-29); Chloride 105 mmol/L (98-107); Globulin 3.2 g/dL (2.4-3.5); Glucose 109 mg/dL (70-105); Potassium 4.3 mmol/L (3.5-5.1); Protein, Total 6.9 g/dL (6.0-8.3); Sodium 141 mmol/L (136-145)
--- NOTE | 2020-04-25 12:33 | PDOC.HHP ---
Hospitalist HPI SOB Allergies/Adverse Reactions: Allergy/AdvReac Type Severity Reaction Status Date / Time codeine Allergy stomach Verified 12/30/17 09:12 upset Home Medications: Medication Instructions Recorded Confirmed Type Ondansetron [Zofran ODT] 1 tab PO ASDIR PRN 12/30/17 02/08/18 History Pantoprazole Sodium 40 mg PO DAILY 02/08/18 02/08/18 History Aspirin [Ecotrin Low Strength] 81 mg PO BID tab 02/10/18 Rx Past History: PMHx: PSHx: FHx: Social: Hospitalist Results Result Diagrams: 04/25/20 11:39 04/25/20 11:39 Lab results: Laboratory Last Values WBC 9.0 thou/uL (4.8-10.8) 04/25/20 11:39 RBC 4.69 mill/uL (4.70-6.10) L 04/25/20 11:39 Hgb 14.7 g/dL (14.0-18.0) 04/25/20 11:39 Hct 43.7 % (42.0-52.0) 04/25/20 11:39 MCV 93.2 fL (78.0-98.0) 04/25/20 11:39 MCH 31.4 pg (27.0-31.0) H 04/25/20 11:39 MCHC 33.7 g/dL (32.0-36.0) 04/25/20 11:39 RDW 12.2 % (11.5-14.5) 04/25/20 11:39 Plt Count 320 thou/uL (130-400) 04/25/20 11:39 MPV 7.5 fL (7.4-10.4) 04/25/20 11:39 Neutrophils % 79.4 % (42.0-75.0) H 04/25/20 11:39 Lymphocytes % 11.1 % (21.0-51.0) L 04/25/20 11:39 Monocytes % 8.7 % (0.0-10.0) 04/25/20 11:39 Eosinophils % 0.7 % (0.0-10.0) 04/25/20 11:39 Basophils % 0.1 % (0.0-1.0) 04/25/20 11:39 Neutrophils # 7.2 thou/uL (1.40-6.50) H 04/25/20 11:39 Lymphocytes # 1.0 thou/uL (1.20-3.40) L 04/25/20 11:39 Monocytes # 0.8 thou/uL (0.11-0.59) H 04/25/20 11:39 Eosinophils # 0.1 thou/uL (0.0-0.7) 04/25/20 11:39 Basophils # 0.0 thou/uL (0.0-0.2) 04/25/20 11:39 Sodium 141 mmol/L (136-145) 04/25/20 11:39 Potassium 4.3 mmol/L (3.5-5.1) 04/25/20 11:39 Chloride 105 mmol/L (98-107) 04/25/20 11:39 Carbon Dioxide 27 mmol/L (22-29) 04/25/20 11:39 Anion Gap 13 mmol/L (10-20) 04/25/20 11:39 BUN 18 mg/dL (8.4-25.7) 04/25/20 11:39 Creatinine 0.95 mg/dL (0.7-1.3) 04/25/20 11:39 Estimated GFR (MDRD) 82 04/25/20 11:39 Glucose 109 mg/dL (70-105) H 04/25/20 11:39 Calcium 8.8 mg/dL (7.8-10.44) 04/25/20 11:39 Total Bilirubin 1.4 mg/dL (0.2-1.2) H 04/25/20 11:39 AST 30 U/L (5-34) 04/25/20 11:39 ALT 23 U/L (8-55) 04/25/20 11:39 Alkaline Phosphatase 90 U/L (40-110) 04/25/20 11:39 Serum Total Protein 6.9 g/dL (6.0-8.3) 04/25/20 11:39 Albumin 3.7 g/dL (3.5-5.0) 04/25/20 11:39 Globulin 3.2 g/dL (2.4-3.5) 04/25/20 11:39 Albumin/Globulin Ratio 1.2 g/dL (1.2-2.2) 04/25/20 11:39
--- NOTE | 2020-04-25 12:44 | PDOC.HHP ---
Hospitalist HPI SOB History of Present Illness: Mr. Ayala is a 59 year-old male with a PMHx of obesity s/p gastric bypass who presents with SOB, COVID positive. Pt reports his symptoms began about two weeks ago with cough, fever, mailaise. Last week he went to urgent care where he was given a z-pack and course of prednisone. He reports that since stopping the prednisone he feels as though his breathing has gotten worse. He has been tracking his O2 saturation at home and will desat to the low 80s when he is walking around his house. He denies chest pain or palpitations. Denies pleuritic pain. Denies abdominal pain, N/V/D. In emergency room initial vital signs 132/87, 72, 24, 98.4, 98% on room air. During the walking trial patient desaturated to 84%. Chest x-ray showed bilateral groundglass opacities consistent with COVID-19 pneumonia. WBC 9.0, H/H 43.7/93.2. Allergies/Adverse Reactions: Allergy/AdvReac Type Severity Reaction Status Date / Time codeine Allergy stomach Verified 12/30/17 09:12 upset Home Medications: Medication Instructions Recorded Confirmed Type Ondansetron [Zofran ODT] 1 tab PO ASDIR PRN 12/30/17 02/08/18 History Pantoprazole Sodium 40 mg PO DAILY 02/08/18 02/08/18 History Aspirin [Ecotrin Low Strength] 81 mg PO BID tab 02/10/18 Rx Past History: PMHx: Hypertension Obstructive sleep apnea Obesity Above 3 problems now resolved status post gastric bypass surgery PSHx: Gastric bypass surgery Right knee replacement FHx: Denies family history of cardiac disease or cancer. Social: Denies tobacco, alcohol or drug use. Lives at home with family. Hospitalist HPI ROS Constitutional: reports: weakness, malaise. denies: fever, chills, sweats, other Eyes: denies: pain, vision change, conjunctivae inflammation, eyelid inflammation, redness, other ENT: denies: ear pain, ear discharge, nose pain, nose discharge, nose congestion, mouth pain, mouth swelling, throat pain, throat swelling, other Respiratory: reports: cough, dry, shortness of breath, SOB with excertion. denies: hemoptysis, pleuritic pain, sputum, wheezing, other Cardiovascular: denies: chest pain, palpitations, orthopnea, paroxysmal noc. dyspnea, edema, light headedness, other Gastrointestinal: denies: nausea, vomiting, abdominal pain, diarrhea, constipation, melena, hematochezia, other Genitourinary: denies: dysuria, frequency, incontinence, hematuria, retention, other Musculoskeletal: denies: neck pain, shoulder pain, arm pain, back pain, hand pain, leg pain, foot pain, other Skin: denies: rash, lesions, fartun, bruising, other Neurological: denies: weakness, numbness, incoordination, change in speech, confusion, seizures, other Hospitalist Exam General Appearance: NAD Eye: PERRL, anicteric sclera ENT: normocephalic atraumatic, no oropharyngeal lesions, moist mucosa Neck: supple, symmetric, no JVD, no thyromegaly, no lymphadenopathy, no carotid bruit Heart: negative: RRR, no murmur, no gallops, no rubs, normal peripheral pulses, irregular, diminshed peripheral pulses, murmur present, II/IV, III/IV Respiratory: CTAB, no wheezes, no rales, no ronchi, normal chest expansion, no tachypnea, normal percussion Gastrointestinal: soft, non-tender, non-distended, normal bowel sounds, no palpable masses, no hepatomegaly, no splenomegaly, no bruit Extremities: no cyanosis, no clubbing, no edema Skin: normal turgor, no lesions, no rashes Neurological: cranial nerve grossly intact, normal sensation to touch, no weakness, no focal deficits, no new deficit Musculoskeletal: normal tone, normal strength, no muscle wasting Psychiatric: normal affect, normal behavior, A&O x 3 Hospitalist Results Result Diagrams: 04/25/20 11:39 04/25/20 11:39 Lab results: Laboratory Last Values WBC 9.0 thou/uL (4.8-10.8) 04/25/20 11:39 RBC 4.69 mill/uL (4.70-6.10) L 04/25/20 11:39 Hgb 14.7 g/dL (14.0-18.0) 04/25/20 11:39 Hct 43.7 % (42.0-52.0) 04/25/20 11:39 MCV 93.2 fL (78.0-98.0) 04/25/20 11:39 MCH 31.4 pg (27.0-31.0) H 04/25/20 11:39 MCHC 33.7 g/dL (32.0-36.0) 04/25/20 11:39 RDW 12.2 % (11.5-14.5) 04/25/20 11:39 Plt Count 320 thou/uL (130-400) 04/25/20 11:39 MPV 7.5 fL (7.4-10.4) 04/25/20 11:39 Neutrophils % 79.4 % (42.0-75.0) H 04/25/20 11:39 Lymphocytes % 11.1 % (21.0-51.0) L 04/25/20 11:39 Monocytes % 8.7 % (0.0-10.0) 04/25/20 11:39 Eosinophils % 0.7 % (0.0-10.0) 04/25/20 11:39 Basophils % 0.1 % (0.0-1.0) 04/25/20 11:39 Neutrophils # 7.2 thou/uL (1.40-6.50) H 04/25/20 11:39 Lymphocytes # 1.0 thou/uL (1.20-3.40) L 04/25/20 11:39 Monocytes # 0.8 thou/uL (0.11-0.59) H 04/25/20 11:39 Eosinophils # 0.1 thou/uL (0.0-0.7) 04/25/20 11:39 Basophils # 0.0 thou/uL (0.0-0.2) 04/25/20 11:39 Sodium 141 mmol/L (136-145) 04/25/20 11:39 Potassium 4.3 mmol/L (3.5-5.1) 04/25/20 11:39 Chloride 105 mmol/L (98-107) 04/25/20 11:39 Carbon Dioxide 27 mmol/L (22-29) 04/25/20 11:39 Anion Gap 13 mmol/L (10-20) 04/25/20 11:39 BUN 18 mg/dL (8.4-25.7) 04/25/20 11:39 Creatinine 0.95 mg/dL (0.7-1.3) 04/25/20 11:39 Estimated GFR (MDRD) 82 04/25/20 11:39 Glucose 109 mg/dL (70-105) H 04/25/20 11:39 Calcium 8.8 mg/dL (7.8-10.44) 04/25/20 11:39 Total Bilirubin 1.4 mg/dL (0.2-1.2) H 04/25/20 11:39 AST 30 U/L (5-34) 04/25/20 11:39 ALT 23 U/L (8-55) 04/25/20 11:39 Alkaline Phosphatase 90 U/L (40-110) 04/25/20 11:39 Serum Total Protein 6.9 g/dL (6.0-8.3) 04/25/20 11:39 Albumin 3.7 g/dL (3.5-5.0) 04/25/20 11:39 Globulin 3.2 g/dL (2.4-3.5) 04/25/20 11:39 Albumin/Globulin Ratio 1.2 g/dL (1.2-2.2) 04/25/20 11:39 Hospitalist H&P A/P Plan: COVID-19 pneumonia 59-year-old male with minimal past medical history presents Covid positive with worsening shortness of breath. Patient symptoms began over 2 weeks ago and over the past few days has noticed worsening shortness of breath and dyspnea on exertion. O2 saturations dropping on ambulation to 84% in the emergency room. Patient has been keeping track of O2 saturation at home and reports sats dropping as low as 70 when he is walking around his house. Chest x-ray showed bilateral groundglass opacities consistent with COVID-19 pneumonia. WBC 9.0. Of note patient did complete a course of Decadron last week from urgent care and a Z-Roshan. Reports his breathing feels worse since stopping the Decadron. Will continue patient on steroids obtain baseline inflammatory markers and see if patient is candidate for home O2 Plan -Decadron -Supplemental oxygen -Tylenol, Robitussin -Vitamin C, zinc -We will obtain baseline inflammatory markers Case management consult for home O2 Acute hypoxic respiratory failure Patient with acute hypoxic respiratory failure secondary to moderate to severe COVID-19 pneumonia. Patient with new oxygen requirement now on 2 L of oxygen nasal cannula to maintain O2 sat when ambulating. We will continue supplemental oxygen and closely monitor respiratory status. Treatment as above. Plan -Supplemental oxygen PRN -Treatment as above -Closely monitor respiratory status DVT prophylaxisLovenox Full code Case discussed with attending physician Dr. Youngblood.
[2020-04-25] MEDS ORDERED: Acetaminophen 650 MG Suppository PR PRN (12:48)
[2020-04-25] MEDS ORDERED: Guaifenesin DM 100-10/5 ML UDCUP PO PRN (12:48)
[2020-04-25] MEDS ORDERED: Acetaminophen 325 MG TAB PO PRN (12:48)
[2020-04-25 23:08] VITALS: BMI 26.9
[2020-04-26 06:12] LABS: #Eosinphils 0.1 thou/uL (0.0-0.7); #Lymphocytes 1.5 thou/uL (1.20-3.40); #Monocytes 0.5 thou/uL (0.11-0.59); %Basophils 0.1 % (0.0-1.0); %Eosinophils 1.2 % (0.0-10.0); %Lymphocytes 18.6 % (21.0-51.0); %Monocytes 5.8 % (0.0-10.0); %Neutrophils 74.4 % (42.0-75.0); Hemoglobin 13.6 g/dL (14.0-18.0); Mean Corpuscular HGB CONC 33.4 g/dL (32.0-36.0); Mean Corpuscular Hemoglobin 30.4 pg (27.0-31.0); Mean Corpuscular Volume 91.1 fL (78.0-98.0); Mean Platelet Volume 7.5 fL (7.4-10.4); Platelet Count 348 thou/uL (130-400); RBC Distribution Width 12.1 % (11.5-14.5); Red Blood Cell (RBC) Count 4.46 mill/uL (4.70-6.10); White Blood Cell (WBC) Count 8.1 thou/uL (4.8-10.8)
[2020-04-26 06:28] LABS: Anion Gap 10 mmol/L (10-20); BUN (Urea Nitrogen) 18 mg/dL (8.4-25.7); Calc. Creatinine Clearance 133 mL/min (70-130); Calcium 8.6 mg/dL (7.8-10.44); Carbon Dioxide 27 mmol/L (22-29); Chloride 105 mmol/L (98-107); Glucose 115 mg/dL (70-105); Potassium 4.1 mmol/L (3.5-5.1); Sodium 138 mmol/L (136-145)
[2020-04-26] MEDS: Zinc Sulfate 220 MG CAP PO SCH (09:16)
[2020-04-26] MEDS: Ascorbic Acid 500 mg Chewable Tablet PO SCH (09:16)
[2020-04-26] MEDS: Enoxaparin Sodium 40 MG/0.4 ML SYRINGE SC SCH (09:16)
[2020-04-26] MEDS ORDERED: Dexamethasone 4 mg/ml Vial SLOW IVP SCH (12:00)
[2020-04-26] MEDS ORDERED: cefTRIAXone\\ROCEPHIN 2 GM in Sodium Chloride 0.9% 100 ML IVPB SCH (14:00)
--- NOTE | 2020-04-26 15:12 | PDOC.HOSPP ---
- Subjective Encounter Date: 04/26/20 Encounter Time: 15:10 Subjective: This patient is a 59-year-old who is seen very good health was diagnosed with COVID-19 pneumonia about 2 weeks ago who has been doing well at home but here in the last day or 2 started having worsening shortness of breath. He arrived in the emergency room where after working test showed that he was hypoxic with O2 saturation in the mid 80s. The patient is really not having any cough and no fever has been documented. He was not on oxygen on my arrival. I review of his chest x-ray shows bibasilar infiltrate concerning for COVID-19 pneumonia and likely superimposed bacterial. I believe he needs antibiotics which we will start right now. We will get a set of blood cultures and follow-up for results. We will go ahead and start him on steroid, vitamin C, zinc sulfate etc. - Objective Vital Signs & Weight: Vital Signs (12 hours) Temp Pulse Resp BP BP Pulse Ox 04/26/20 11:50 98.2 F 60 18 126/86 97 04/26/20 09:15 75 20 97 04/26/20 07:41 98.2 F 52 L 16 130/87 99 04/26/20 05:09 97.2 F L 45 L 18 138/89 96 Weight Weight 204 lb Result Diagrams: 04/26/20 05:55 04/26/20 05:55 Radiology Reviewed by me: Yes EKG Reviewed by me: Yes Hospitalist ROS - Review of Systems Respiratory: reports: shortness of breath, SOB with excertion - Medication Medications: Active Medications Generic Name Dose Route Start Last Admin Trade Name Freq PRN Reason Stop Dose Admin Ascorbic Acid 1,000 mg 04/26/20 09:00 04/26/20 09:16 Ascorbic Acid 500 Mg Chewable Tablet PO 1,000 mg DAILY ZOLTAN Administration Enoxaparin Sodium 40 mg 04/26/20 09:00 04/26/20 09:16 Enoxaparin Sodium 40 Mg/0.4 Ml Syringe SC 40 mg 0900 ZOLTAN Administration Ceftriaxone Sodium 2 gm/ 100 mls @ 200 mls/hr 04/26/20 14:00 04/26/20 13:09 Sodium Chloride IVPB 100 mls Q24HR ZOLTAN Administration Sodium Chloride 10 ml 04/25/20 12:48 04/26/20 09:16 Flush - Normal Saline 10 Ml Syringe IVF 10 ml PRN PRN Administration Saline Flush Zinc Sulfate 220 mg 04/26/20 09:00 04/26/20 09:16 Zinc Sulfate 220 Mg Cap PO 220 mg DAILY ZOLTAN Administration Hospitalist Exam Vitals: Vital Signs (12 hours) Temp Pulse Resp BP BP Pulse Ox 04/26/20 11:50 98.2 F 60 18 126/86 97 04/26/20 09:15 75 20 97 04/26/20 07:41 98.2 F 52 L 16 130/87 99 04/26/20 05:09 97.2 F L 45 L 18 138/89 96 Weight Weight 204 lb General Appearance: NAD, awake alert Eye: PERRL, anicteric sclera ENT: normocephalic atraumatic, no oropharyngeal lesions Neck: supple, symmetric, no JVD, no thyromegaly Heart: RRR, no murmur, no gallops Respiratory: CTAB, no wheezes, no rales Gastrointestinal: soft, non-tender, non-distended Neurological: cranial nerve grossly intact, normal sensation to touch Psychiatric: normal affect, normal behavior Hosp A/P (1) Pneumonia due to COVID-19 virus Code(s): U07.1 - COVID-19; J12.82 - PNEUMONIA DUE TO CORONAVIRUS DISEASE 2019 Status: Acute (2) Sinus bradycardia Code(s): R00.1 - BRADYCARDIA, UNSPECIFIED Status: Acute - Plan continue antibiotics, respiratory therapy, incentive spirometry, out of bed/am bulate #1. Acute hypoxic respiratory failure Patient was hypoxic especially on exertion. Likely secondary to COVID-19 pneumonia. Right now he does not think that he needs oxygen but he may needed as he begins to get around more. 2. COVID-19 pneumonia.. Review of his chest x-ray appears to be consistent with Covid. Superimposed bacterial pneumonia not excluded. I will go ahead and start him on empiric IV antibiotics pending the culture information. 3. Sinus bradycardia. Patient with sinus bradycardia at rest that improves once he begins to get around. If he is completely asymptomatic without any symptoms.
[2020-04-26] MEDS: Doxycycline 100 MG CAP PO SCH (20:27)
[2020-04-27 07:11] LABS: #Eosinphils 0.2 thou/uL (0.0-0.7); #Lymphocytes 1.6 thou/uL (1.20-3.40); #Monocytes 0.6 thou/uL (0.11-0.59); #Neutrophils 6.2 thou/uL (1.40-6.50); %Basophils 0.5 % (0.0-1.0); %Eosinophils 2.1 % (0.0-10.0); %Lymphocytes 18.3 % (21.0-51.0); %Monocytes 7.4 % (0.0-10.0); %Neutrophils 71.6 % (42.0-75.0); Hemoglobin 13.3 g/dL (14.0-18.0); Mean Corpuscular HGB CONC 33.5 g/dL (32.0-36.0); Mean Corpuscular Hemoglobin 30.8 pg (27.0-31.0); Mean Corpuscular Volume 91.8 fL (78.0-98.0); Mean Platelet Volume 7.6 fL (7.4-10.4); Platelet Count 346 thou/uL (130-400); RBC Distribution Width 12.2 % (11.5-14.5); Red Blood Cell (RBC) Count 4.33 mill/uL (4.70-6.10); White Blood Cell (WBC) Count 8.7 thou/uL (4.8-10.8)
[2020-04-27 07:35] LABS: Anion Gap 12 mmol/L (10-20); BUN (Urea Nitrogen) 17 mg/dL (8.4-25.7); Calc. Creatinine Clearance 130 mL/min (70-130); Calcium 8.8 mg/dL (7.8-10.44); Carbon Dioxide 25 mmol/L (22-29); Chloride 107 mmol/L (98-107); Glucose 89 mg/dL (70-105); Potassium 4.1 mmol/L (3.5-5.1); Sodium 140 mmol/L (136-145)
[2020-04-27] MEDS: Zinc Sulfate 220 MG CAP PO SCH (07:52)
[2020-04-27] MEDS: Doxycycline 100 MG CAP PO SCH (07:52)
[2020-04-27] MEDS: Enoxaparin Sodium 40 MG/0.4 ML SYRINGE SC SCH (07:52)
[2020-04-27] MEDS: Ascorbic Acid 500 mg Chewable Tablet PO SCH (07:52)
[2020-04-27] MEDS ORDERED: Dexamethasone 4 MG TAB PO SCH (08:00)
--- NOTE | 2020-04-27 09:18 | EKG ---
Test Reason : Blood Pressure : / mmHG Vent. Rate : 082 BPM Atrial Rate : 082 BPM P-R Int : 150 ms QRS Dur : 072 ms QT Int : 382 ms P-R-T Axes : 025 -29 081 degrees QTc Int : 446 ms Sinus rhythm with Premature atrial complexes Moderate voltage criteria for LVH, may be normal variant Nonspecific T wave abnormality Abnormal ECG No previous ECGs available Confirmed by DORINDA GARZA, DR. Lee ([id number]) on 04/27/2020 9:17:57 AM Referred By: AFFRAM Confirmed By:DR. Rosa SETH MD
[2020-04-27] MEDS ORDERED: Cefdinir 300 MG CAP PO SCH ×2 (12:30→21:00)
--- NOTE | 2020-04-27 13:24 | PDOC.HOSPP ---
- Subjective Encounter Date: 04/27/20 Encounter Time: 09:30 Subjective: Patient seen for follow-up regarding COVID-19 pneumonia. Reports feeling well. - Objective Vital Signs & Weight: Vital Signs (12 hours) Temp Pulse Resp BP Pulse Ox 04/27/20 08:00 55 L 18 97 04/27/20 07:54 98.6 F 46 L 16 131/86 97 04/27/20 05:30 50 L 18 97 Weight Weight 204 lb I&O: 04/26/20 04/27/20 04/28/20 06:59 06:59 06:59 Intake Total 1345 Balance 1345 Result Diagrams: 04/27/20 06:34 04/27/20 06:34 Additional Labs: Labs and MAR reviewed by hi Hospitalist ROS - Review of Systems Respiratory: reports: cough, sputum. denies: dry, shortness of breath, hemoptysis, SOB with excertion, pleuritic pain, wheezing Cardiovascular: denies: chest pain, palpitations, orthopnea, paroxysmal noc. dyspnea, edema, light headedness - Medication Medications: Active Medications Generic Name Dose Route Start Last Admin Trade Name Freq PRN Reason Stop Dose Admin Ascorbic Acid 1,000 mg 04/26/20 09:00 04/27/20 07:52 Ascorbic Acid 500 Mg Chewable Tablet PO 1,000 mg DAILY ZOLTAN Administration Cefdinir 300 mg 04/27/20 12:30 04/27/20 12:45 Cefdinir 300 Mg Cap PO 04/27/20 15:00 300 mg NOW ZOLTAN Administration Dexamethasone 6 mg 04/27/20 08:00 04/27/20 07:52 Dexamethasone 4 Mg Tab PO 6 mg [facility] ZOLTAN Administration Doxycycline Hyclate 100 mg 04/26/20 21:00 04/27/20 07:52 Doxycycline 100 Mg Cap PO 100 mg BID ZOLTAN Administration Enoxaparin Sodium 40 mg 04/26/20 09:00 04/27/20 07:52 Enoxaparin Sodium 40 Mg/0.4 Ml Syringe SC 40 mg 0900 ZOLTAN Administration Pantoprazole Sodium 40 mg 04/27/20 12:30 04/27/20 12:44 Pantoprazole 40 Mg Tab PO 04/27/20 15:00 40 mg NOW ZOLTAN Administration Sodium Chloride 10 ml 04/25/20 12:48 04/27/20 07:52 Flush - Normal Saline 10 Ml Syringe IVF 10 ml PRN PRN Administration Saline Flush Zinc Sulfate 220 mg 04/26/20 09:00 04/27/20 07:52 Zinc Sulfate 220 Mg Cap PO 220 mg DAILY ZOLTAN Administration Hospitalist Exam Vitals: Vital Signs (12 hours) Temp Pulse Resp BP Pulse Ox 04/27/20 08:00 55 L 18 97 04/27/20 07:54 98.6 F 46 L 16 131/86 97 04/27/20 05:30 50 L 18 97 Weight Weight 204 lb General Appearance: awake alert Eye: anicteric sclera ENT: normocephalic atraumatic Neck: supple Heart: RRR Respiratory: CTAB Gastrointestinal: soft, non-tender Skin: no rashes Psychiatric: normal affect, normal behavior Hosp A/P - Plan (1) Pneumonia due to COVID-19 virus Code(s): U07.1 - COVID-19; J12.82 - PNEUMONIA DUE TO CORONAVIRUS DISEASE 2019 Status: Acute (2) Sinus bradycardia Code(s): R00.1 - BRADYCARDIA, UNSPECIFIED Status: Acute - Plan 1. COVID-19 pneumonia. Continue dexamethasone. Transition to oral antibiotics. Patient is oxygenating well on room air at rest. Evaluate oxygen saturations with exertion. 2. Sinus bradycardia. Patient reports that he has a chronic history of low heart rate especially in the morning. This is not an acute issue.
--- NOTE | 2020-04-27 14:05 | PDOC.DS.DS ---
Provider Date of Admission: 04/25/20 12:02 Date of Discharge: 04/27/20 Admitting Provider: Warren Youngblood MD Primary Care Physician: North Hurst MD Course Hospital Course: Discharge diagnosis: 1. COVID-19 infection 2. Pneumonia 3. Bradycardia Hospital course: Patient is a pleasant 59-year-old gentleman who was admitted to the hospital on April 25, 2020 for pneumonia and recently diagnosed COVID-19 infection. He was treated with steroids, zinc and vitamin C. He also received antibiotics because of concern over superimposed bacterial infection. He continued to maintain good oxygen saturation on the day of discharge. He is being advised to obtain a pulse oximeter and check his oxygen saturations 3 times a day and when feeling short of breath and seek medical attention for oxygen saturation less than 90%. Patient was updated and is agreeable with the plan of action. Patient also was bradycardic especially in the morning hours. He reports that this is a chronic issue and he has known about it for a while. He is advised to seek medical attention if it persists. Many thanks for allowing me to participate in your patient's care. Please feel free to contact me with any questions or concerns. Discharge destination: Home Total amount of time spent coordinating this discharge: 20 minutes Resuscitation Status: 04/25/20 12:48 Resuscitation Status Routine Co-Sign Provider: Resuscitation Status: FULL: Full Resuscitation Lab Results: 04/27/20 06:34 04/27/20 06:34 Abnormal Lab Results - Last 48 hrs 04/26/20 05:55: RBC 4.46 L, Hgb 13.6 L, Hct 40.6 L, Lymphocytes % 18.6 L 04/27/20 06:34: RBC 4.33 L, Hgb 13.3 L, Hct 39.8 L, Lymphocytes % 18.3 L, Monocytes # 0.6 H Vitals: Vital Signs (12 hours) Temp Pulse Resp BP Pulse Ox 04/27/20 08:00 55 L 18 97 04/27/20 07:54 98.6 F 46 L 16 131/86 97 04/27/20 05:30 50 L 18 97 Weight Weight 204 lb Physical Exam: The patient was seen and examined on the day of discharge. Please refer to my daily progress note for further details regarding this [id number] encounter. Plan Prescriptions: Dexamethasone 6 mg PO DAILY #7 tablet Levofloxacin 750 mg PO DAILY #7 tablet Pantoprazole [Protonix] 40 mg PO DAILY #7 tab Ascorbic Acid [Vitamin C] 1,000 mg PO DAILY #7 tablet Zinc Sulfate [Zinc-220] 220 mg PO DAILY #7 capsule Home Medications: Medication Instructions Recorded Confirmed Type Ascorbic Acid [Vitamin C] 1,000 mg PO DAILY #7 tablet 04/27/20 Rx Dexamethasone 6 mg PO DAILY #7 tablet 04/27/20 Rx Levofloxacin 750 mg PO DAILY #7 tablet 04/27/20 Rx Pantoprazole [Protonix] 40 mg PO DAILY #7 tab 04/27/20 Rx Zinc Sulfate [Zinc-220] 220 mg PO DAILY #7 capsule 04/27/20 Rx Allergies: No Known Allergies Allergy (Unverified 04/25/20 23:07) Discharge Instructions:: Check your oxygen saturation with a pulse oximeter 3 times a day and whenever short of breath, seek medical attention for oxygen saturation less than 90%. Activity:: Activity as Tolerated Nourishment:: Heart Healthy Diet Referrals: North Hurst MD [Primary Care Provider] - 3 Days Disposition: HOME Quality CORE MEASURES:: N/A
[2020-04-27 15:27] VITALS: BP 119/76; TEMP 97.7
== END 2020-04-27 15:58 | disposition home or self-care (01) | DRG 177 ==
LOC: ERS 09:05 → ERHOLD 12:02 → T4-A 21:29
PROVIDERS: ADMIT Internal Medicine; ATTEND Internal Medicine
DX: U07.1 COVID-19 (principal); J12.82 Pneumonia due to coronavirus disease 2019; J96.01 Acute respiratory failure with hypoxia; I10 Essential (primary) hypertension; E66.9 Obesity, unspecified; R00.1 Bradycardia, unspecified; Z96.651 Presence of right artificial knee joint; Z68.26 Body mass index [BMI] 26.0-26.9, adult; Z98.84 Bariatric surgery status; Z88.5 Allergy status to narcotic agent; Z79.82 Long term (current) use of aspirin; Z79.899 Other long term (current) drug therapy
CPT/HCPCS: 36415; 71045; 80048; 80053; 82728; 84145; 85025; 86140; 93005; 93010; 94760; 96374; J0696; J1100; J1650; J3490; J8540

== ENCOUNTER 2023-05-13 05:41 | Observation (INO) | payer OTHER ==
[2023-05-11 14:37] VITALS: BMI 30.9
[2023-05-13] MEDS ORDERED: Vancomycin (BATCH) 1.5 GM/300 ML BAG ONE (06:04)
[2023-05-13] MEDS ORDERED: Sodium Chloride 0.9% 100 ML ONE ×2 (06:04→06:59)
[2023-05-13] MEDS ORDERED: Tranexamic Acid 1,000 MG/10 ML VIAL ONE (06:04)
[2023-05-13] MEDS ORDERED: fentaNYL 50 mcg/mL 1 mL Vial ONE (06:11)
[2023-05-13] MEDS ORDERED: Lidocaine 1% (PF) 30 ML VIAL ONE (06:12)
[2023-05-13] MEDS ORDERED: Ropivacaine 0.5% HCl/PF (150 MG/30 ML VIAL) ONE (06:12)
[2023-05-13] MEDS ORDERED: Ropivacaine 0.2% HCl/PF 20 ML ONE (06:12)
[2023-05-13] MEDS ORDERED: Midazolam HCl 2 mg/2 ml Vial ONE (06:12)
[2023-05-13] MEDS ORDERED: Lidocaine 1% PF 5 ML VIAL ONE (06:20)
[2023-05-13] MEDS ORDERED: SUGAMMADEX SODIUM 200 MG/2 ML VIAL ONE (06:20)
[2023-05-13] MEDS ORDERED: Dexamethasone 4 mg/ml Vial ONE (06:20)
[2023-05-13] MEDS ORDERED: PROPOFOL 20 ML ONE (06:20)
[2023-05-13] MEDS ORDERED: Ondansetron PF 4 MG/2 ML Vial ONE (06:20)
[2023-05-13] MEDS ORDERED: Rocuronium Bromide 10 MG/ML (10ML VIAL) ONE (06:20)
[2023-05-13] MEDS ORDERED: fentaNYL PF 100 MCG/2 ML SYRINGE ONE (06:23)
[2023-05-13] MEDS ORDERED: CEFAZOLIN 2 GM VIAL ONE (06:59)
[2023-05-13] MEDS ORDERED: HYDROcodone/Acetaminophen 10/325 mg Tablet PO PRN ×3 (07:01→07:15)
[2023-05-13] MEDS ORDERED: Phenylephrine 10 MG/ML VIAL ONE (07:06)
[2023-05-13] MEDS ORDERED: fentaNYL 50 mcg/mL 1 mL Vial SLOW IVP PRN (07:12)
[2023-05-13] MEDS ORDERED: Promethazine HCl 25 MG/ML VIAL IM PRN (07:15)
[2023-05-13] MEDS ORDERED: Ondansetron PF 4 MG/2 ML Vial IVP PRN (07:15)
[2023-05-13] MEDS ORDERED: Ropivacaine 0.2% 550 ML 550 ML NERVE BLCK SCH (07:15)
[2023-05-13] MEDS ORDERED: ePHEDrine Sulfate 50 MG/10 ML VIAL ONE (07:35)
[2023-05-13] MEDS: HYDROcodone/Acetaminophen 10/325 mg Tablet PO PRN (14:17)
[2023-05-13] MEDS: CEFAZOLIN 2 GM in Sodium Chloride 0.9% 100 ML IVPB SCH (14:19)
[2023-05-13] MEDS: Sodium Chloride 0.9% 1,000 ML IV SCH (14:21)
[2023-05-13] MEDS: Ketorolac Tromethamine 30 MG (1 mL) VIAL IVP SCH (15:12)
[2023-05-13] MEDS: traMADol HCl 50 MG TAB PO PRN (21:00)
[2023-05-13] MEDS: Zolpidem Tartrate 5 MG TAB PO PRN (23:02)
[2023-05-14] MEDS: traMADol HCl 50 MG TAB PO PRN (04:29)
[2023-05-14 07:49] VITALS: BP 163/101; TEMP 98.4
== END 2023-05-14 11:54 | disposition home or self-care (01) ==
LOC: SDC 05:41 → SJJU 07:06
PROVIDERS: ADMIT Orthopaedic Surgery; ATTEND Orthopaedic Surgery
PROC: 0RRJ0JZ Replacement of Right Shoulder Joint with Synthetic Substitute, Open Approach (ICD-10-PCS; principal; 2023-05-14)
PROC: 0LS30ZZ Reposition Right Upper Arm Tendon, Open Approach (ICD-10-PCS; 2023-05-14)
DX: M19.011 Primary osteoarthritis, right shoulder (principal); M75.21 Bicipital tendinitis, right shoulder; M17.10 Unilateral primary osteoarthritis, unspecified knee; E78.5 Hyperlipidemia, unspecified; G47.33 Obstructive sleep apnea (adult) (pediatric); Z90.49 Acquired absence of other specified parts of digestive tract; Z98.890 Other specified postprocedural states; Z87.891 Personal history of nicotine dependence; Z96.651 Presence of right artificial knee joint; Z79.899 Other long term (current) drug therapy
CPT/HCPCS: A4306; C1776; C1889; J1100; J1885; J2001; J2250; J2371; J2405; J2704; J2795; J3010; J3370; J3490; J7050